=== PATIENT | female | born 1985 | race Caucasian/White ===

== ENCOUNTER 2017-09-27 05:06 | Emergency (ER) | payer MEDICAID ==
[~2017-09-27] VITALS: Ht 154.9 cm; Wt 66.8 kg
[2017-09-27 07:04] LABS: microscopic required? NO
[2017-09-27 07:10] LABS: CALCIUM 8.7 mg/dL (8.5-10.1); CARBON DIOXIDE 25.5 mmol/L (21-32); CHLORIDE SERUM 107 mmol/L (98-107); CREATININE SERUM 0.7 mg/dL (0.6-1.0); GFR1 > 60 mL/min; GLUCOSE SERUM 113 mg/dL (74-106); POTASSIUM SERUM 4.2 mmol/L (3.5-5.1); SODIUM SERUM 140 mmol/L (136-145)
[2017-09-27 07:15] LABS: ALBUMIN 3.5 g/dL (3.4-5.0); ALKALINE PHOSPHATASE 78 U/L (46-116); ALT/SGPT 20 U/L (14-59); AST/SGOT 8 U/L (15-37); BILIRUBIN TOTAL 0.3 mg/dL (0.20-1.00); CHOLESTEROL 142 mg/dL (<200); HDL CHOLESTEROL 48 mg/dL (40-60); LIPASE 194 IU/L (73-393); TOTAL PROTEIN, SERUM 7.5 g/dL (6.4-8.2); TRIGLYCERIDES 65 mg/dL (<150)
[2017-09-27 07:25] LABS: FREE THYROXINE INDEX 3.3 ug/dL (1.4-4.5)
[2017-09-27 07:29] LABS: BASOPHIL % 0.5 % (0-2); PLATELET COUNT 280 x10^3mcL (130-400); RED CELL DISTRIBUTION WIDTH 12.9 % (11.5-14.5)
[2017-09-27 07:29] LABS: urine erythrocyte NEGATIVE (NEGATIVE)
[2017-09-27 07:30] LABS: T3 TOTAL 1.12 ng/mL
[2017-09-27 09:10] VITALS: BP 121/74
== END 2017-09-27 09:10 | disposition home or self-care (01) ==
LOC: ED 05:06
PROVIDERS: Specialist
DX: R07.9 Chest pain, unspecified (principal)
CPT/HCPCS: 83880; 84439; J7030; Q0092; Q9967

== ENCOUNTER 2017-11-27 21:01 | Emergency (ER) | payer OTHER ==
[~2017-11-27] VITALS: Ht 154.9 cm; Wt 66.7 kg
[2017-11-27 21:08] VITALS: Ht 154.9 cm; Wt 66.7 kg
[2017-11-27 22:59] LABS: PLATELET COUNT 261 x10^3mcL (130-400); RED CELL DISTRIBUTION WIDTH 12.4 % (11.5-14.5)
[2017-11-27 23:00] VITALS: BP 106/66
[2017-11-27 23:09] LABS: CALCIUM 8.7 mg/dL (8.5-10.1); CARBON DIOXIDE 26.4 mmol/L (21-32); CHLORIDE SERUM 107 mmol/L (98-107); CREATININE SERUM 0.8 mg/dL (0.6-1.0); GFR1 > 60 mL/min; GLUCOSE SERUM 126 mg/dL (74-106); POTASSIUM SERUM 3.6 mmol/L (3.5-5.1); SODIUM SERUM 142 mmol/L (136-145)
[2017-11-27 23:14] LABS: ALKALINE PHOSPHATASE 62 U/L (46-116); ALT/SGPT 23 U/L (14-59); AMYLASE 72 U/L (25-115); AST/SGOT 12 U/L (15-37); BILIRUBIN TOTAL 0.2 mg/dL (0.20-1.00); LIPASE 227 IU/L (73-393); TOTAL PROTEIN, SERUM 6.8 g/dL (6.4-8.2)
[2017-11-27 23:15] LABS: ALBUMIN 3.3 g/dL (3.4-5.0)
== END 2017-11-27 23:28 | disposition home or self-care (01) ==
LOC: ED 21:01
PROVIDERS: Emergency Medicine
DX: K80.20 Calculus of gallbladder without cholecystitis without obstruction (principal)
CPT/HCPCS: 36415; 83880; J1885; Q0162